=== PATIENT | female | born 1960 | race Caucasian/White ===

== ENCOUNTER 2022-06-08 11:35 | Observation (INO) ==
--- NOTE | 2022-05-10 15:35 | PAT Medication Instructions ---
Medication Instructions Date of Service May 10, 2022 Home Medications ibuprofen 200 mg tablet (Advil) 600 mg PO BID PRN magnesium gluconate 500 mg tablet 500 mg PO TID ASK your surgeon for instructions ibuprofen 200 mg tablet (Advil) 600 mg PO BID PRN DO NOT take the morning of surgery magnesium gluconate 500 mg tablet 500 mg PO TID Take evening before surgery magnesium gluconate 500 mg tablet 500 mg PO TID Other Notes If you have any questions please call us at [phone] or [phone] or [phone] or [phone]
--- NOTE | 2022-05-16 08:40 | Anesthesiology Consultation ---
Date of Service May 16, 2022 Assessment & Plan (1) Encounter for pre-operative examination: Chart Review Chart Review: Acceptable Risk for Surgery and Patient seen in Pre Admission Testing Teaching & Discussion Pre-Anesthesia Teaching/Discussion Notes: Instructed NPO after midnight before surgery, except medications with 15 cc of water. Medication instructions provided according to the PAT guidelines. History Surgery Operation Date: 06/08/22 11:30 Proposed Procedures p Left Total Shoulder Arthroplasty - Bean Garrido MD Height/Weight Height: 5 ft 4 in Weight: 73.5 kg Allergies Allergy/AdvReac Type Severity Reaction Status Date / Time No Known Allergies Allergy Verified 05/10/22 14:53 Medications Home Medications Medication Instructions Recorded Confirmed Last Taken ibuprofen 200 mg tablet (Advil) 600 mg PO BID PRN Pain 05/10/22 05/10/22 Unknown magnesium gluconate 500 mg tablet 500 mg PO TID 05/10/22 05/10/22 Unknown Past Medical History Medical History (Updated 05/16/22 @ 08:50 by Janice Patel PA-C) Elevated cholesterol History of COVID-19 04/2021 DX History of kidney stones Hypertension controlled, stable per pt Jaw clicking NO LOCKING Prediabetes Patient denies h/o stroke, seizures, heart attack, heart failure, blood clots or blood transfusions. Exercise / Class Metabolic Activity II 4-5 Yardwork/Stairs/Walk up hill (denies CP or SOB with 1 FOS) Past Family History Family History Other No family history of adverse response to anesthesia Past Surgical History Surgical History H/O cardiac radiofrequency ablation 2009/[facility]>TACHYCARDIA (RESOLVED) H/O shoulder surgery LEFT X 2 History of section X 4 History of colonoscopy History of lithotripsy History of partial hysterectomy S/P hip arthroscopy RT [place] teeth removed Past Anesthesia History No Hx of Anesthesia Complications and No Family Hx of Anesthesia Complications History of PONV No Hx of PONV and No Hx of Motion Sickness Social History Smoking Status: Never smoker Do You Dip or Chew Tobacco: No Hx Alcohol Use: Yes Alcohol type: wine and hard liquor alcohol intake frequency: a few times a week substance use type: does not use Review of Systems Patient denies chest pain, shortness of breath, dyspnea on exertion, snoring, witnessed apneas, reflux, fever, chills, cough, wheezing, or palpitations. Physical Exam Vital Signs Vitals BP 150/87 (Pt states BP is usually 130s/70-80s, is anxious today at appointment about surgery) P 76 SP02 98% on RA RESP 17 Physical Full cervical extension range of motion without pain TMD 3.5 finger breadths Mallampati Score 2 Dentition: intact, caps/crowns, implants; denies chipped or loose teeth Lungs: normal respiratory effort. Clear throughout to auscultation, no adventitious breath sounds Cardiac: regular rate and rhythm, no murmurs noted Carotid arteries: negative bruit bilat Lab Results Anesthesia Preop Results Results Anesthesia Widget: WBC 5.73 K/ul (4.8-10.8) 05/16/22 Hgb 15.2 g/dl (12.0-16.0) 05/16/22 Hct 43.4 % (34.1-44.9) 05/16/22 Plt 190 K/uL (130-400) 05/16/22 Na 139 mmol/L (136-145) 05/16/22 K 4.4 mmol/L (3.5-5.1) 05/16/22 Cl 105 mmol/L (98-107) 05/16/22 CO2 25 mmol/L (21-32) 05/16/22 BUN 19 mg/dl (6-23) 05/16/22 Creat 0.80 mg/dl (0.6-1.2) 05/16/22 Glucose Level 145 mg/dl (70-99(Fasting)) H 05/16/22 PT 10.0 Seconds (9.0-12.0) 05/16/22 PTT 24.6 Seconds (21.0-31.0) 05/16/22 INR 0.9 (0.9-1.1) 05/16/22 HA1c 5.7 % (4.5-5.6) H 05/16/22 Urine Color Yellow 05/16/22 Urine Appearance Clear (Clear) 05/16/22 Urine pH 7.0 (4.5-7.5) 05/16/22 Urine Specific [place] 1.016 (1.000-1.030) 05/16/22 Urine Protein Negative (Negative) 05/16/22 Urine Glucose (UA) Negative (Negative) 05/16/22 Urine Ketones Negative (Negative) 05/16/22 Urine Blood Negative (Negative) 05/16/22 Urine Nitrite Negative (Negative) 05/16/22 Urine Bilirubin Negative (Negative) 05/16/22 Urine Urobilinogen Negative (Negative) 05/16/22 Urine Leukocyte Esterase Negative (Negative) 05/16/22 Blood Type B Negative 05/16/22 Antibody Screen NEGATIVE 05/16/22 Testing Electrocardiogram Date: 05/16/22 NSR, rate 66 bpm Chest X-Ray Date: 05/16/22 No acute chest disease
--- NOTE | 2022-06-07 16:31 | History & Physical Report ---
Date of Service June 07, 2022 Assessment & Plan (1) Primary osteoarthritis, left shoulder: Plan: Treatment options discussed with patient. She has failed conservative measures would like to proceed with surgical intervention. Risks, benefits and alternatives to surgery including but not limited to infection, DVT, pain, stiffness, need for revision surgery, damage to blood vessels, damage to nerves, PE, , were discussed with the patient and they wish to proceed. Plan on left total shoulder arthroplasty scheduled on June 08 at [facility] with Dr. Garrido. We will plan on outpatient PT postop. All questions answered. She will follow-up postop. History of Present Illness Chief Complaint: Left shoulder pain Primary Care Provider: NO PCP 61-year-old female with past medical history significant for hypertension who presents with ongoing left shoulder pain. Pain is interfering with her daily a ctivities. She has failed conservative measures. She would like to proceed with surgical invention.Patient denies headaches, sweats, fevers, chills, double vision, blurred vision, cough, sore throat, dysphagia, chest pain, sob, wheezing, n/v/d/c, numbness, tingling, fatigue, urinary symptoms, mood disorders. ROS positive for Left shoulder pain and stiffness. Allergies Allergy/AdvReac Type Severity Reaction Status Date / Time No Known Allergies Allergy Verified 06/08/22 12:05 Home Medications Medication Instructions Recorded Confirmed Type ibuprofen 200 mg tablet (Advil) 600 mg PO BID PRN Pain 05/10/22 06/08/22 History magnesium gluconate 500 mg tablet 500 mg PO TID 05/10/22 06/08/22 History Past Med/Surg History Medical History Elevated cholesterol History of COVID-19 04/2021 DX History of kidney stones Hypertension controlled, stable per pt Jaw clicking NO LOCKING Prediabetes Surgical History H/O cardiac radiofrequency ablation 2009/[facility]>TACHYCARDIA (RESOLVED) H/O shoulder surgery LEFT X 2 History of section X 4 History of colonoscopy History of lithotripsy History of partial hysterectomy S/P hip arthroscopy RT [place] teeth removed Family History Other No family history of adverse response to anesthesia Social History Smoking Status: Never smoker Second Hand Exposure: Yes (IN THE PAST); Do You Dip or Chew Tobacco: No; Hx Alcohol Use: Yes Alcohol type: wine and hard liquor Preferred Language: Latvian Manifold Builder Required: No Beliefs That Will Affect Care: None Current Living Situation: Spouse Feels Safe at Home: Yes Safety Concerns: Feels Safe At This Time Assistive Devices: Glasses Review of Systems All systems reviewed & are unremarkable except as noted in HPI & below Physical Exam Constitutional: well developed and well nourished; no acute distress Eyes: PERRL, conjunctivae normal, anicteric sclerae ENMT: external ear and nose normal, oropharynx normal Neck: trachea midline, no thyromegaly Respiratory: normal respiratory effort, lungs clear to auscultation Cardiovascular: RRR, no murmur, no edema Musculoskeletal: Left shoulder: Active painful ROM. FF to 170, abduction to 180, ER to 75 degrees. Crepitation with ROM. Pain with strength testing. Skin: no rashes, warm and dry Neurologic: patellar DTR's 2+ bilat, sensation intact Psychiatric: A+Ox3, euthymic affect Results & Data ([facility]) Diagnostic Findings Left shoulder radiographs demonstrate significant arthritis left shoulder. The re is a large inferior osteophyte. Significant joint space narrowing glenohumeral joint.
[~2022-06-08 11:35] MED LIST: ACETAMINOPHEN 500 MG TAB PO SCH; BUPIVACAINE 0.5 % 5 MG/1 ML PF 10ML VIAL ONE; CeleBREX 200 MG CAP PO SCH; DEXAMETHASONE SOD INJ 4 MG/ML VIAL ONE; FAMOTIDINE 20 MG TAB PO SCH; GABAPENTIN 300 MG CAP PO SCH; LIDOCAINE 2% MPF LOCAL 5 ML VIAL INFIL ONE; LR 15ML/HR IV SCH; METOCLOPRAMIDE HCL 10 MG TABLET PO SCH; MIDAZOLAM HCL 1 MG/ML 2ML VIAL ONE; ONDANSETRON INJ 2 MG/ML 2 ML VIAL ONE; PROPOFOL IV EMULSION 10 MG/ML 20 ML VIAL IV ONE; TRANEXAMIC ACID 1,000 MG **IV Intra-op IV SCH; TRANEXAMIC ACID 1,000 MG **IV Pre-op IV SCH; ceFAZolin 1000MG 1,000 MG/7.5 ML SYR IV SCH; dexAMETHasone 4 MG TAB PO SCH
[2022-06-08] MEDS ORDERED: PROMETHAZINE HCL 6.25 MG in SODIUM CHLORIDE 0.9% 50 ML IV PRN (12:02)
[2022-06-08] MEDS ORDERED: ePHEDrine sulfate 50 MG/ML AMP IV PRN (12:02)
[2022-06-08] MEDS ORDERED: ATROPINE SULFATE 0.1 MG/ML 10ML SYR IV PRN (12:02)
[2022-06-08] MEDS ORDERED: ONDANSETRON INJ 2 MG/ML 2 ML VIAL IV PRN ×2 (12:02→17:49)
[2022-06-08] MEDS ORDERED: HYDROmorphone INJ 1 MG/ML SYRINGE IV PRN (12:02)
[2022-06-08] MEDS ORDERED: fentaNYL citrate 100 MCG/2 ML VIAL IV PRN (12:02)
[2022-06-08] MEDS ORDERED: EpINEphrine HCL INJ 1 MG/ML 1ML SYRINGE ONE (12:48)
[2022-06-08] MEDS ORDERED: fentaNYL citrate 100 MCG/2 ML VIAL ONE ×2 (13:29→16:03)
--- NOTE | 2022-06-08 13:46 | History & Physical Bridge Note ---
Date of Service June 08, 2022 History & Physical Bridge Note I have examined the patient, reviewed the History & Physical and in the interval since the performance of the History & Physical I have noted the following changes of clinical significance: no changes noted
[2022-06-08] MEDS ORDERED: SUCCINYLCHOLINE 100MG/5ML SYR IV ONE (14:27)
[2022-06-08] MEDS ORDERED: ROCURONIUM BROMIDE 10 MG/ML 5 ML VIAL IV ONE ×2 (14:27→15:40)
[2022-06-08] MEDS ORDERED: GLYCOPYRROLATE 0.2 MG/ML VIAL ONE (16:22)
[2022-06-08] MEDS ORDERED: NEOSTIGMINE METHYLSULFATE 1 MG/ML 10ML VIAL ONE (16:22)
--- NOTE | 2022-06-08 16:41 | Operative Report ---
Post Operative Report Pre & Post Diagnosis Operation Date: 06/08/22 13:10 Pre-Op Diagnosis: Osteoarthritis of the left glenohumeral joint. Post-Op Diagnosis: Osteoarthritis of the left glenohumeral joint., Biceps tenosynovitis. I identified the patient and participated in the time-out.: Yes Procedure Operation Date: 06/08/22 13:10 Actual Procedures p Left Total Shoulder Arthroplasty(Left), biceps tenodesis with tenosynovectomy biceps tendon sheath - Bean Garrido MD Surgeon Bean Garrido MD Engineering Production Liaison Gerardo TIERNEY Estimated Blood Loss 100 Findings Consistent with Post-Op Diagnosis Specimens Humeral head cut Drains 2 Hemovac Anesthesia Type General Regional Complications none Disposition Disposition: Recovery Room Indications 61-year-old female with chronic osteoarthritis her left shoulder failed conservative management. Radiographs demonstrate osteoarthritis of left glenohumeral joint with large inferior humeral osteophytes and glenohumeral joint space narrowing on axillary view close to [id number]. Description of Procedure Patient was taken to the operating room anesthetized under regional block and general anesthetic. Patient was placed in a 40 degree beachchair position with a foam headrest protective eyewear all extremities padded teds and SCDs were placed. A towel roll was placed on the medial border of the scapula of the left upper extremity. The arm was examined and range of motion demonstrated 150 degrees forward flexion, 60 degrees external rotation with the arm to side and 70 degrees of internal rotation and 80 degrees of abduction. An anterior deltopectoral approach was performed. Longitudinal incision was made in deltopectoral interval. Skin incised sharply and subcutaneous flaps elevated. The deltopectoral interval was identified. The cephalic vein demonstrated normal-appearing cephalic vein. The cephalic vein was retracted laterally with the deltoid. The upper centimeter of the pectoralis was released for inferior exposure. Biceps tendon demonstrated large fluid collection overlying biceps tendon with chronic tenosynovitis. There were spurs in the bicipital groove. A tenosynovectomy was performed removing all of the inflamed tissue around the biceps tendon. The biceps was tenodesed to the pectoralis tendon using #2 FiberWire [id number] sutures. Proximal biceps was resected. Rotator cuff findings demonstrated intact rotator cuff. The circumflex vessels were tied off with silk ties and divided laterally. The subscapularis muscle fibers were split at the level of circumflex vessels and released off the inferior capsule with a Kitner elevator and then a blunt Hohmann retractor was placed protect the axillary nerve. The rotator interval was released down to the level of the glenoid. The subscapularis tendon was taken down with a transtendinous incision leaving a cuff of tissue for repair on the lesser tuberosity. The humeral head findings demonstrated advanced arthritic changes on humeral head with areas of grade 3 and grade 4 osteoarthritis no eburnated bone but significant articular thinning. The inferior osteophytes were resected using an artist chisel and rongeur. The inferior capsule was released off the bone subperiosteally using a Maguire elevator. A #1 Vicryl traction suture was placed into the free edge of the subscapularis tendon. A Fukuda retractor was placed into the joint. Capsule was released with Siu scissors down to the glenoid and off of the anterior glenoid to the rotator interval which was released to meet the capsular release creating a 360 degree release of subscapularis tendon. An anterior Bankart retractor was placed. The glenoid and labral findings demonstrated typical degenerative changes of the labrum and the glenoid had more significant osteoarthritic changes in the humeral head with areas of exposed bone and areas where there were complete delamination of the articular surface of the glenoid. There was concentric type A wear pattern. An anterior-inferior and posterior inferior capsule release was performed electrocautery on bone and a Maguire elevator. The axillary nerve was protected inferiorly with the blunt Hohmann. Attention was taken back to the humeral head. Humeral head was exposed with extension and external rotation. The oscillating saw was used to make an anatomic neck cut removing the articular surface. All the circumferential remaining osteophytes were trimmed with a rongeur. The humerus was sized for a 2 nucleus and a 50 x 19 humeral head. The bone was assessed with a thumb press test and there was solid cancellous bone. The guide for the nucleus was placed centrally and then the guidepin was placed. The surface reamer was used followed by the central drill for the nucleus. The trial nucleus was inserted and the cut protector was placed. The humerus was retracted posterior to the glenoid . A Tornier retractor ,Hohmann retractors as well as an anterior Bankart retractor were placed. The glenoid was fully exposed. The Tornier Cortiloc glenoid was used. The small 35 size was chosen. The central drill hole was made followed by the reamer for the glenoid followed by widening the central hole for the central post. The guide for the peripheral drill holes was placed and the drill holes were made. The trial reduction performed with stable fixation. The trial removed and the glenoid copiously irrigated with pulsed saline solution. The drill holes were packed with epinephrine-soaked tampons. The [place] G cement was vacuum mixed. The small 35 Cortiloc glenoid component was then cemented in position after drying the glenoid after removal of the tampons. Fixation was excellent. All excess cement was cleared. When the cement cured we moved onto removing the cut protector doing a trial reduction with a 50 x 19 millimeter humeral head trial. Stability was assessed and was stable. Soft tissue tension on the subscapularis tendon was satisfactory. The trial components of the humeral head were removed and the 3 drill holes were made in the harder bone in the biceps groove area and transosseous #5 FiberWire sutures were placed. Then the humeral cut surface was reexposed with retractors and after irrigation the size 2 nucleus was impacted leaving it slightly proud until the 50 x 19 mm simplicity humeral head was placed into the nucleus and then both were impacted into the humerus with a tight press-fit. The humerus was reduced to the glenoid. The stability was verified. The subscapularis tendon was repaired in 2 [id number] #2 FiberWire sutures. Lateral row fixation was performed with interrupted [id number] #2 FiberWire sutures and rotator interval was closed with #2 FiberWire sutures. Range of motion demonstrated 150 degrees forward flexion 100 degrees abduction 45 degrees external rotation and 70 degrees internal rotation without tension on repair. The pectoralis was repaired with [id number] #2 FiberWire sutures placing sutures back through the biceps tendon to reinforce the tenodesis. 2 Hemovac drains were placed. The deltopectoral interval was repaired with figure-of- eight #1 Vicryl sutures. The subcutaneous tissue was repaired with 2-0 Vicryl sutures and the skin was closed with angela. Sterile dressings were applied and a sling immobilizer. The patient tolerated the procedure well. Gerardo TIERNEY acted as treasury assistant throughout the procedure. He functioned as treasury assistant assisting in all aspects of the procedure including patient positioning prepping draping, arm positioning, soft tissue retraction,, instrument management, subcutaneous and skin closure and postop care the patient as well. I attest to the content of the Intraoperative Record and any orders documented therein. Any exceptions are noted below.
--- NOTE | 2022-06-08 17:18 | XRay Report ---
XR shoulder LT min 2V routine CLINICAL HISTORY: Post shoulder surgery TECHNIQUE: 3 views of the left shoulder were obtained. Comparison: None available at the time of this dictation. FINDINGS: Patient is status post shoulder arthroplasty with expected postsurgical changes including soft tissue swelling and subcutaneous emphysema. No periarticular lucency or hardware fracture is seen. IMPRESSION: Expected postoperative appearance status post placement of shoulder arthroplasty. ACT 112: Negative or not required by law. Electronically signed by: Burton Bell M.D. 06/08/2022 5:16 PM
--- NOTE | 2022-06-08 17:26 | Anesthesiology Progress Note ---
Date of Service June 08, 2022 Anesthesia Post Procedure Vital Signs Vital Signs: Temp Pulse Pulse Resp BP Pulse Ox O2 Del Method 06/08/22 17:25 97.9 F 72 19 145/83 H 95 Room Air 06/08/22 17:15 72 20 135/79 95 Room Air 06/08/22 17:05 75 16 143/89 H 98 Oxymask 06/08/22 16:55 74 19 128/76 98 Oxymask 06/08/22 16:45 97.2 F L 90 14 153/92 H 97 Oxymask 06/08/22 12:10 98.4 F 65 20 169/86 H 97 Room Air O2 Flow Rate 06/08/22 17:25 06/08/22 17:15 06/08/22 17:05 4 06/08/22 16:55 9 06/08/22 16:45 9 06/08/22 12:10 Pain Intensity Left Shoulder: Pain Intensity: 4 Transfer of Care Handoff Completed per policy Notes Mental Status: alert / awake / arousable and participated in evaluation Patient Amnestic to Procedure: Yes Nausea / Vomiting: adequately controlled Pain: adequately controlled Airway Patency, RR, SpO2: stable & adequate BP & HR: stable & adequate Hydration State: stable & adequate Anesthetic Complications: no major complications apparent and Pt Satisfied with anesthetic care
[2022-06-08] MEDS ORDERED: NALOXONE HCL 0.4 MG/1 ML VIAL/CARP IV PRN (17:49)
[2022-06-08] MEDS ORDERED: bisacodyL 10 MG SUPP PR PRN (17:49)
[2022-06-08] MEDS ORDERED: MAGNESIUM HYDROXIDE SUSP 30 ML UDC PO PRN (17:49)
--- NOTE | 2022-06-08 18:32 | Hospitalist Consultation ---
Date of Consultation June 08, 2022 Assessment & Plan (1) Primary osteoarthritis, left shoulder: - Pain management, bowel regimen and DVT ppx per the primary team - PT/OT consults, pt is planning on outpatient therapy - Follow am CBC to monitor for acute blood loss - Encourage OOB (2) Hypertension: - Hx of such, previously was on atenolol 12.5 mg daily but stopped taking this nearly 6 months ago as did not see a PCP through covid pandemic. She then tested positive for covid this summer. She wants to continue following with Valerie Morris DO as her primary pcp - Will monitor BP and determine if any needs for reintroduction of antihypertensive-outpatient SBP's ranging 135-170s per patient report - Previously used lasix 40 mg prn for lower extremity edema, pt states used only whenever she was flying on a plane, but rarely experiences edema at this time (3) Elevated cholesterol: - Lipid panel from 07/30/2020 show cholesterol of 242, triglycerides 211, HDL 55, LDL 145 - will recheck with am labs -Diet and exercise to be encouraged (4) Prediabetes: - Last A1c was from 05/16/22 and was 5.7, improved compared to previous 6.0 from 07/30/2020 and outpatient epic review - Continue to encourage diet and exercise (5) Hypothyroidism: - Hx of such, pt has been noncompliant with medication and previously was on levothyroxine 125 mcg daily- she has not taken for at least 6 mo to a year as per HPI. - Recheck TSH with Free T4 -- Add levothyroxine if needed, will need repeat TSH in 6 weeks and follow up with PCP DVT PPx: -Ambulatory, teds CODE: Full code Dispo: From home, likely to remain in the hospital x 1-2 days Thank you for involving us in the care of Mrs. Drummond. Please do not hesitate to call with questions or concerns. At this time medicine service will follow along. Supervising Physician Co-Signing Physician Notes Care coordinated with Connie Dick PA-C . Agree with above note. Patient seen and examined. Please refer to her notes for full details. Vital signs reviewed. Physical exam: General exam: Alert and oriented. Not in acute distress. CVS: S1 and S2 heard, regular rate and rhythm, no murmurs. RS: Clear to auscultation, no wheezing or crackles. ABD: Soft, bowel sounds present, nontender, no distention. LOCAL DELIVERY TRUCK DRIVER: Nonfocal. EXT: Left shoulder dressing intact. Labs: Reviewed. Assessment and plan: 61F s/p left shoulder arthoplasty Left shoulder arthoplasty: Management as per ortho. HTN Currently not taking atenolol. Will monitor. Other diagnosis and plan of care as per Connie Dick PA-C . Celestino westfall MD. History of Present Illness Reason for Consultation: Medical management Requesting Physician: Dr. Bermudez Attending Physician: Bean Garrido MD History of Present Illness This is a 61-year-old female with PMHx of prediabetes, WPW syndrome status post cardiac ablation in 2015, hypothyroidism, HTN, anxiety, and multiple surgical histories including shoulder surgery, hip surgery, lumbar disc disease, and total abdominal hysterectomy who underwent elective left total shoulder arthroplasty, by Dr. Bermudez today, 06/08/2022. Patient is doing well today, she reports her left fingers are still somewhat numb since coming up from surgery. Her pain is well controlled. She was up and ambulated to the bathroom to urinate, reports her urine was somewhat dark because of being n.p.o. for surgery . Pt admits to some postoperative nausea, slowly improving, and just now is starting to drink water. She admits that she has not seen her PCP in nearly the past 2 years due to COVID pandemic, and states that the office would not see her in person. She received preop clearance from [facility]'s preanesthesia testing for shoulder surgery today. She has not been on any of her medications which are listed in the [facility] outpatient chart including levothyroxine 125 mcg, atenolol 12.5 mg daily, or Lasix 40 mg twice a week as needed for swelling in lower legs. Her frustration with not being able to see her PCP is obvious at bedside, but she is willing to have thyroid function checked here while in the hospital and is agreeable to restarting levothyroxine if needed. She denies the need for Lasix as she does not experience much swelling in her legs at all at this point, notes that she previously took it whenever she was flying in a plane. In regards to atenolol, she was on 12.5 mg but stopped taking this because of feeling tired. She denies any chest pain, palpitations, flutter and recalls that it was started because of elevated blood pressure; to her knowledge BPs run around 135-170 systolic in the outpatient setting. Allergies Allergy/AdvReac Type Severity Reaction Status Date / Time No Known Allergies Allergy Verified 06/08/22 12:05 Home Medications Medication Instructions Recorded Confirmed Type magnesium gluconate 500 mg tablet 500 mg PO TID 05/10/22 06/08/22 History acetaminophen 500 mg tablet 1,000 mg PO Q8 14 days #84 tabs 06/09/22 Rx (Tylenol Extra Strength) aspirin 81 mg tablet,delayed 81 mg PO QAM 30 days #30 tabs 06/09/22 Rx release oxycodone 5 mg tablet 5 mg PO Q4H PRN pain #18 tabs 06/09/22 Rx Patient History Medical History (Updated 06/08/22 @ 19:28 by Connie Dick PA-C) Elevated cholesterol History of COVID-19 04/2021 DX History of kidney stones Hypertension controlled, stable per pt Jaw clicking NO LOCKING Prediabetes Surgical History H/O cardiac radiofrequency ablation 2009/[facility]>TACHYCARDIA (RESOLVED) H/O shoulder surgery LEFT X 2 History of section X 4 History of colonoscopy History of lithotripsy History of partial hysterectomy S/P hip arthroscopy RT [place] teeth removed Family History Other No family history of adverse response to anesthesia Social History Smoking Status: Never smoker Second Hand Exposure: Yes (IN THE PAST); Do You Dip or Chew Tobacco: No; Hx Alcohol Use: Yes Alcohol type: wine and hard liquor Preferred Language: Sudanese [employer] Required: No Beliefs That Will Affect Care: None Current Living Situation: Spouse Feels Safe at Home: Yes Safety Concerns: Feels Safe At This Time Assistive Devices: Glasses Review of Systems Review of Systems: Constitutional: No fever, sweats or chills Eyes: No diplopia, no worsening or blurred vision ENT: normal hearing, no trouble swallowing Respiratory: No cough, sputum, dyspnea at rest or on exertion Cardiovascular: No chest pain, tightness or palpitations Abdomen: No pain, nausea, vomiting, diarrhea or constipation Musculoskeletal: No joint pain, calf pain, swelling Neurologic: + Still numb in the left hand and fingers, otherwise no weakness, numbness/tingling, or balance problems Psychiatric: No anxiety or depression Skin: No rash or itch Physical Exam Physical Exam: General: awake, alert, no apparent distress Head: Normocephalic, atraumatic ENT: PERRL, EOMI, no pharyngeal exudate, mucous membranes moist Chest: Clear to auscultation, on room air, no adventitious breath sounds Cardiac: Regular rate and rhythm, no murmur, no JVD, normal peripheral pulses, good capillary refill Abdominal: NABS x 4 quadrants, soft, nondistended, nontender to palpation, no rebound or guarding Extremities: Left shoulder dressing C/C/I, arm is in a sling, MICHAELA drain in place, otherwise normal inspection, no peripheral edema or erythema, calfs nontender to palpation Psych: Normal mood and affect Neuro: AAO x 3, strength intact bilaterally and rated 5/5, no motor deficits, speech is clear, no peripheral sensory deficits Results & Data Results & Data ([facility]) Vital Signs (Past 12 Hours) Vital Signs Temp Pulse Pulse Resp BP Pulse Ox O2 Del Method 06/08/22 18:18 36.6 C 65 16 131/75 95 Room Air 06/08/22 17:38 36.7 C 16 120/70 97 Room Air 06/08/22 17:25 36.6 C 72 19 145/83 H 95 Room Air 06/08/22 17:15 72 20 135/79 95 Room Air 06/08/22 17:05 75 16 143/89 H 98 Oxymask 06/08/22 16:55 74 19 128/76 98 Oxymask 06/08/22 16:45 36.2 C L 90 14 153/92 H 97 Oxymask 06/08/22 12:10 36.9 C 65 20 169/86 H 97 Room Air O2 Flow Rate 06/08/22 18:18 06/08/22 17:38 06/08/22 17:25 06/08/22 17:15 06/08/22 17:05 4 06/08/22 16:55 9 06/08/22 16:45 9 06/08/22 12:10 Laboratory Results 06/08/22 06/08/22 12:26 12:16 POC Glucose 92 SARS-CoV-2, RNA, NAAT NEGATIVE
[2022-06-08] MEDS: SODIUM CHLORIDE 0.9% 1000ML 1,000 ML IV SCH (18:38)
[2022-06-08] MEDS: HYDROmorphone INJ 0.5 MG/0.5 ML SYR IV PRN ×2 (20:04→23:55)
[2022-06-08] MEDS: MAGNESIUM OXIDE 400 MG TAB PO SCH (20:05)
[2022-06-08] MEDS: DOCUSATE SODIUM 100 MG CAP PO SCH (20:13)
[2022-06-08] MEDS ORDERED: SENNA 8.6 MG TAB PO SCH (21:00)
[2022-06-08] MEDS: ceFAZolin 1000MG 1,000 MG/7.5 ML SYR IV SCH (21:57)
[2022-06-08] MEDS: ACETAMINOPHEN 500 MG TAB PO SCH (21:59)
[2022-06-09] MEDS: oxyCODONE HCL IR 5 MG TAB (IMMEDIATE RELEASE) PO PRN ×3 (02:44→15:49)
[2022-06-09] MEDS: SODIUM CHLORIDE 0.9% 1000ML 1,000 ML IV SCH ×2 (03:49→04:15)
[2022-06-09] MEDS: HYDROmorphone INJ 0.5 MG/0.5 ML SYR IV PRN ×2 (04:11→11:24)
[2022-06-09 06:11] LABS: Basophils # (auto) 0.02 K/uL (0-0.2); Basophils % (auto) 0.2 %; Eosinophils # (auto) 0.01 K/uL (0-0.50); Eosinophils % (auto) 0.1 %; Hematocrit (blood only) 36.6 % (34.1-44.9); Hemoglobin 12.8 g/dl (12.0-16.0); Immature Granulocytes # (auto) 0.06 K/uL (0.00-0.02); Immature Granulocytes % (auto) 0.5 %; Lymphocytes # (auto) 0.93 K/uL (1.2-3.4); Lymphocytes % (auto) 7.9 %; Mean Corpuscular Volume 97.1 fL (80.0-100.0); Mean Platelet Volume 11.2 fL (9.4-12.3); Monocytes # (auto) 0.71 K/uL (0.24-0.82); Monocytes % (auto) 6.1 %; Neutrophils % (auto) 85.2 %; Platelet Count 173 K/uL (130-400); RDW Coefficient of Variation 11.7 % (11.5-14.5); RDW Standard Deviation 41.4 fL (36.4-46.3); Red Blood Count 3.77 M/uL (3.93-5.22); White Blood Count 11.73 K/ul (4.8-10.8)
[2022-06-09] MEDS: ACETAMINOPHEN 500 MG TAB PO SCH ×2 (06:41→14:40)
[2022-06-09 06:48] LABS: BUN Creatinine Ratio 16.7 (10-20); Calcium 8.4 mg/dl (8.5-10.1); Chol HDL Ratio 4.1 (0-5); Creatinine Clr Calc Pharmacy 88.4 ml/min; Est GFR (African American) 110.5 ml/min; Est GFR (Non-African American) 95.3 ml/min
[2022-06-09] MEDS: ceFAZolin 1000MG 1,000 MG/7.5 ML SYR IV SCH (07:12)
[2022-06-09] MEDS: MAGNESIUM OXIDE 400 MG TAB PO SCH ×2 (08:13→14:39)
[2022-06-09 08:36] LABS: Estimated Average Glucose 114 mg/dl; Hemoglobin A1C 5.6 % (4.5-5.6)
[2022-06-09] MEDS: DOCUSATE SODIUM 100 MG CAP PO SCH (08:39)
[2022-06-09] MEDS ORDERED: ASPIRIN 81 MG ECTAB PO SCH (09:00)
[2022-06-09] MEDS ORDERED: MULTIVITAMIN TAB PO SCH (09:00)
[2022-06-09] MEDS ORDERED: KETOROLAC 30 MG/ML VIAL IV ONE (12:55)
--- NOTE | 2022-06-09 13:09 | Orthopedic Progress Note ---
Date of Service June 09, 2022 Assessment & Plan (1) Primary osteoarthritis, left shoulder: Plan: Postop day 1 status post left total shoulder arthroplasty PT/OT protocols. Nonweightbearing left upper extremity DVT prophylaxis-aspirin p.o. daily, SCDs. Pain management as written. I have also ordered a one-time dose of Toradol 30 mg IV to help with her pain control. DC planning-patient is planning for outpatient PT upon discharge. Admission and Anticipated Discharge Date Admission Date: June 08, 2022 Subjective Postop day 1 Patient sitting in her chair at the bedside. She is having concerns with her pain control. She is trying to time it accordingly and finds it somewhat difficult here at the hospital. She understands that she will be able to control her pain control better at home. She received 1 dose of hydromorphone at 1130 this morning. She states that has controlled her pain. She had 2 tablets of oxycodone at 830 and was questioning whether she should have had another dose of that at 1230. We discussed her pain medications and timing of those medications. Patient understands and is sure that she is able to control her pain at home. No other complaints at this time. She denies any shortness of breath, chest pain, lightheadedness. Physical Exam Physical Exam: Dressings are clean, dry, and intact. Sling is in place. Fingers have good mobility but she continues to have residual numbness in the first through third fingers which is basically tingling sensation per the patient. Results & Data ([facility]) Vital Signs (Past 12 Hours) Vital Signs Temp Pulse Resp BP Pulse Ox O2 Del Method 06/09/22 11:20 36.6 C 57 L 16 144/81 H 97 Room Air 06/09/22 07:04 36.6 C 67 16 113/61 94 Room Air 06/09/22 02:38 36.4 C L 67 16 131/75 93 Room Air Laboratory Results Laboratory Results WBC 11.73 K/ul (4.8-10.8) H 06/09/22 05:41 RBC 3.77 M/uL (3.93-5.22) L 06/09/22 05:41 Hgb 12.8 g/dl (12.0-16.0) 06/09/22 05:41 Hct 36.6 % (34.1-44.9) 06/09/22 05:41 MCV 97.1 fL (80.0-100.0) 06/09/22 05:41 MCH 34.0 pg (25.0-34.0) 06/09/22 05:41 MCHC 35.0 g/dL (32.0-36.0) 06/09/22 05:41 RDW Std Deviation 41.4 fL (36.4-46.3) 06/09/22 05:41 RDW Coeff of Osbaldo 11.7 % (11.5-14.5) 06/09/22 05:41 Plt Count 173 K/uL (130-400) 06/09/22 05:41 MPV 11.2 fL (9.4-12.3) 06/09/22 05:41 Immature Gran % (Auto) 0.5 % 06/09/22 05:41 Neut % (Auto) 85.2 % 06/09/22 05:41 Lymph % (Auto) 7.9 % 06/09/22 05:41 [place] % (Auto) 6.1 % 06/09/22 05:41 Eos % (Auto) 0.1 % 06/09/22 05:41 Baso % (Auto) 0.2 % 06/09/22 05:41 Neut # (Auto) 10.00 K/uL (1.4-6.5) H 06/09/22 05:41 Lymph # (Auto) 0.93 K/uL (1.2-3.4) L 06/09/22 05:41 [place] # (Auto) 0.71 K/uL (0.24-0.82) 06/09/22 05:41 Eos # (Auto) 0.01 K/uL (0-0.50) 06/09/22 05:41 Baso # (Auto) 0.02 K/uL (0-0.2) 06/09/22 05:41 Immature Gran # (Auto) 0.06 K/uL (0.00-0.02) H 06/09/22 05:41 Sodium 137 mmol/L (136-145) 06/09/22 05:41 Potassium 4.0 mmol/L (3.5-5.1) 06/09/22 05:41 Chloride 109 mmol/L (98-107) H 06/09/22 05:41 Carbon Dioxide 22 mmol/L (21-32) 06/09/22 05:41 Anion Gap 6 (3-11) 06/09/22 05:41 BUN 11 mg/dl (6-23) 06/09/22 05:41 Creatinine 0.66 mg/dl (0.6-1.2) 06/09/22 05:41 Est Cr Clr Drug Dosing 88.4 ml/min 06/09/22 05:41 Est GFR ( Amer) 110.5 ml/min 06/09/22 05:41 Est GFR (Non-Af Amer) 95.3 ml/min 06/09/22 05:41 BUN/Creatinine Ratio 16.7 (10-20) 06/09/22 05:41 Glucose 133 mg/dl (70-99(Fasting)) H 06/09/22 05:41 POC Glucose 92 mg/dl (70-99) 06/08/22 12:16 Estimat Average Glucose 114 mg/dl 06/09/22 05:41 Hemoglobin A1c 5.6 % (4.5-5.6) 06/09/22 05:41 Calcium 8.4 mg/dl (8.5-10.1) L 06/09/22 05:41 Triglycerides 111 mg/dl (0-150) 06/09/22 05:41 Cholesterol 223 mg/dl (0-200) H 06/09/22 05:41 LDL Cholesterol, Calc 147 mg/dl 06/09/22 05:41 VLDL Cholesterol, Calc 22 mg/dl (0-30) 06/09/22 05:41 HDL Cholesterol 54 mg/dl 06/09/22 05:41 Cholesterol/HDL Ratio 4.1 (0-5) 06/09/22 05:41 TSH 1.304 uIu/ml (0.300-4.500) 06/09/22 05:41 SARS-CoV-2, RNA, NAAT NEGATIVE (NEGATIVE) 06/08/22 12:26 Impressions Shoulder X-Ray 06/08/22 16:52 XR shoulder LT min 2V routine CLINICAL HISTORY: Post shoulder surgery TECHNIQUE: 3 views of the left shoulder were obtained. Comparison: None available at the time of this dictation. FINDINGS: Patient is status post shoulder arthroplasty with expected postsurgical changes including soft tissue swelling and subcutaneous emphysema. No periarticular lucency or hardware fracture is seen. IMPRESSION: Expected postoperative appearance status post placement of shoulder arthroplasty. ACT 112: Negative or not required by law. Electronically signed by: Burton Bell M.D. 06/08/2022 5:16 PM
--- NOTE | 2022-06-09 14:52 | Hospitalist Progress Note ---
Date of Service June 09, 2022 Assessment & Plan (1) Primary osteoarthritis, left shoulder: Plan: - Pain management, bowel regimen and DVT ppx per the primary team - PT/OT consults, pt is planning on outpatient therapy (2) Hypertension: Plan: - Hx of such, previously was on atenolol 12.5 mg daily but stopped taking this nearly 6 months ago as did not see a PCP through covid pandemic. She then tested positive for covid this summer. She wants to continue following with Valerie Morris DO as her primary pcp -Blood pressure during the hospitalization well controlled. Discussed with patient regarding home blood pressure monitoring and following up with PCP with the findings. (3) Elevated cholesterol: Plan: Total cholesterol 223 with LDL of 147. -Diet and exercise to be encouraged (4) Prediabetes: Plan: A1c improved to 5.6. Patient is compliant with diet and exercise. Continue same. (5) Hypothyroidism: Plan: TSH is within normal limits. DVT PPx: -Ambulatory, teds CODE: Full code Admission and Anticipated Discharge Date Admission Date: June 08, 2022 Subjective Patient is sitting up on the chair at the side of the bed. She is comfortable; not in distress. Pain is well controlled on current regimen. She is looking forward to get taking discharged today. Review of Systems Review of Systems: All systems reviewed & are unremarkable except as noted in Subjective Physical Exam Physical Exam: Constitutional: WD/WN, vitals as above, NAD, sitting up in bed, pleasant, conversing easily Respiratory: normal respiratory effort, lungs clear to auscultation, no wheeze, rales, rhonchi. Normal insp/exp effort, no accessory muscle use Cardiovascular: RRR, no murmur, no edema Vessels: no JVD or carotid bruit Chest: normal inspection of chest Abdomen: normal bowel sounds, soft, nontender, no hepatosplenomegaly Musculoskeletal: Left shoulder dressing intact; arm in arm sling Skin: no rashes, warm and dry normal turgor Neurologic: PERRL, EOMI, accommodation nl, no face palsy, no dysarthria CN's II- XI intact bilaterally and moves all extremities Psychiatric: A+Ox3, euthymic affect Lymphatic: no cervical or axillary lymphadenopathy : deferred Results & Data Results & Data ([facility]) Vital Signs (Past 12 Hours) Vital Signs Temp Pulse Resp BP Pulse Ox O2 Del Method 10/14/22 11:20 36.6 C 57 L 16 144/81 H 97 Room Air 06/09/22 07:04 36.6 C 67 16 113/61 94 Room Air Laboratory Results Laboratory Results WBC 11.73 K/ul (4.8-10.8) H 06/09/22 05:41 RBC 3.77 M/uL (3.93-5.22) L 06/09/22 05:41 Hgb 12.8 g/dl (12.0-16.0) 06/09/22 05:41 Hct 36.6 % (34.1-44.9) 06/09/22 05:41 MCV 97.1 fL (80.0-100.0) 06/09/22 05:41 MCH 34.0 pg (25.0-34.0) 06/09/22 05:41 MCHC 35.0 g/dL (32.0-36.0) 06/09/22 05:41 RDW Std Deviation 41.4 fL (36.4-46.3) 06/09/22 05:41 RDW Coeff of Osbaldo 11.7 % (11.5-14.5) 06/09/22 05:41 Plt Count 173 K/uL (130-400) 06/09/22 05:41 MPV 11.2 fL (9.4-12.3) 06/09/22 05:41 Immature Gran % (Auto) 0.5 % 06/09/22 05:41 Neut % (Auto) 85.2 % 06/09/22 05:41 Lymph % (Auto) 7.9 % 06/09/22 05:41 [place] % (Auto) 6.1 % 06/09/22 05:41 Eos % (Auto) 0.1 % 06/09/22 05:41 Baso % (Auto) 0.2 % 06/09/22 05:41 Neut # (Auto) 10.00 K/uL (1.4-6.5) H 06/09/22 05:41 Lymph # (Auto) 0.93 K/uL (1.2-3.4) L 06/09/22 05:41 [place] # (Auto) 0.71 K/uL (0.24-0.82) 06/09/22 05:41 Eos # (Auto) 0.01 K/uL (0-0.50) 06/09/22 05:41 Baso # (Auto) 0.02 K/uL (0-0.2) 06/09/22 05:41 Immature Gran # (Auto) 0.06 K/uL (0.00-0.02) H 06/09/22 05:41 Sodium 137 mmol/L (136-145) 06/09/22 05:41 Potassium 4.0 mmol/L (3.5-5.1) 06/09/22 05:41 Chloride 109 mmol/L (98-107) H 06/09/22 05:41 Carbon Dioxide 22 mmol/L (21-32) 06/09/22 05:41 Anion Gap 6 (3-11) 06/09/22 05:41 BUN 11 mg/dl (6-23) 06/09/22 05:41 Creatinine 0.66 mg/dl (0.6-1.2) 06/09/22 05:41 Est Cr Clr Drug Dosing 88.4 ml/min 06/09/22 05:41 Est GFR ( Amer) 110.5 ml/min 06/09/22 05:41 Est GFR (Non-Af Amer) 95.3 ml/min 06/09/22 05:41 BUN/Creatinine Ratio 16.7 (10-20) 06/09/22 05:41 Glucose 133 mg/dl (70-99(Fasting)) H 06/09/22 05:41 POC Glucose 92 mg/dl (70-99) 06/08/22 12:16 Estimat Average Glucose 114 mg/dl 06/09/22 05:41 Hemoglobin A1c 5.6 % (4.5-5.6) 06/09/22 05:41 Calcium 8.4 mg/dl (8.5-10.1) L 06/09/22 05:41 Triglycerides 111 mg/dl (0-150) 06/09/22 05:41 Cholesterol 223 mg/dl (0-200) H 06/09/22 05:41 LDL Cholesterol, Calc 147 mg/dl 06/09/22 05:41 VLDL Cholesterol, Calc 22 mg/dl (0-30) 06/09/22 05:41 HDL Cholesterol 54 mg/dl 06/09/22 05:41 Cholesterol/HDL Ratio 4.1 (0-5) 06/09/22 05:41 TSH 1.304 uIu/ml (0.300-4.500) 06/09/22 05:41 SARS-CoV-2, RNA, NAAT NEGATIVE (NEGATIVE) 06/08/22 12:26 Impressions Shoulder X-Ray 06/08/22 16:52 XR shoulder LT min 2V routine CLINICAL HISTORY: Post shoulder surgery TECHNIQUE: 3 views of the left shoulder were obtained. Comparison: None available at the time of this dictation. FINDINGS: Patient is status post shoulder arthroplasty with expected postsurgical changes including soft tissue swelling and subcutaneous emphysema. No periarticular lucency or hardware fracture is seen. IMPRESSION: Expected postoperative appearance status post placement of shoulder arthroplasty. ACT 112: Negative or not required by law. Electronically signed by: Burton Bell M.D. 06/08/2022 5:16 PM
--- NOTE | 2022-06-14 14:59 | Discharge Summary ---
Date of Service June 14, 2022 Admission HPI Per Admitting Provider 61-year-old female with past medical history significant for hypertension who presents with ongoing left shoulder pain. Pain is interfering with her daily activities. She has failed conservative measures. She would like to proceed with surgical invention.Patient denies headaches, sweats, fevers, chills, double vision, blurred vision, cough, sore throat, dysphagia, chest pain, sob, wheezing, n/v/d/c, numbness, tingling, fatigue, urinary symptoms, mood disorders. ROS positive for Left shoulder pain and stiffness. Admission Exam Per Admitting Provider Physical Exam Constitutional: well developed and well nourished; no acute distress Eyes: PERRL, conjunctivae normal, anicteric sclerae ENMT: external ear and nose normal, oropharynx normal Neck: trachea midline, no thyromegaly Respiratory: normal respiratory effort, lungs clear to auscultation Cardiovascular: RRR, no murmur, no edema Musculoskeletal: Left shoulder: Active painful ROM. FF to 170, abduction to 180, ER to 75 degrees. Crepitation with ROM. Pain with strength testing. Skin: no rashes, warm and dry Neurologic: patellar DTR's 2+ bilat, sensation intact Psychiatric: A+Ox3, euthymic affect Principal Diagnosis Left Shoulder Osteoarthritis Discharge Data Allergies Allergy/AdvReac Type Severity Reaction Status Date / Time No Known Allergies Allergy Verified 06/08/22 12:05 Consultations 06/06/22 13:17 Consult Hospitalist Routine Procedures Performed Operation Date: 06/08/22 13:10 Actual Procedures p Left Total Shoulder Arthroplasty(Left) - Bean Garrido MD Ordered Studies 06/08/22 05:00 US - OR guided needle placemen Routine Hospital Course (1) Primary osteoarthritis, left shoulder: Patient:BRIDGETTE ELLER Admit Date:06/08/22 MR#:[id number] Att Phy:Bean Garrido M.D. Acct ID:[id number] Richelle Phy:Valerie Groves DO Date:1960 Fam Phy: Age:61 Location:3E Sex:F Room/Bed:Banner cc: ~ *NOTICE TO RECEIVING CONSTITUTION PARTY/AGENCY This information is strictly Confidential and protected under [place] law. [place] law prohibits you from making any further disclosure of this information unless further disclosure is expressly permitted by the written consent of the person to whom it pertains or is authorized by law. A general authorization for the release of medical or other information is not sufficient for this purpose. Hospital accepts no responsibility if the information is made available to any other person, INCLUDING THE PATIENT. Date of Service June 09, 2022 Assessment & Plan (1) Primary osteoarthritis, left shoulder: Plan: Postop day 1 status post left total shoulder arthroplasty PT/OT protocols. Nonweightbearing left upper extremity DVT prophylaxis-aspirin p.o. daily, SCDs. Pain management as written. I have also ordered a one-time dose of Toradol 30 mg IV to help with her pain control. DC planning-patient is planning for outpatient PT upon discharge. Admission and Anticipated Discharge Date Admission Date: June 08, 2022 Subjective Postop day 1 Patient sitting in her chair at the bedside. She is having concerns with her pain control. She is trying to time it accordingly and finds it somewhat difficult here at the hospital. She understands that she will be able to control her pain control better at home. She received 1 dose of hydromorphone at 1130 this morning. She states that has controlled her pain. She had 2 tablets of oxycodone at 830 and was questioning whether she should have had another dose of that at 1230. We discussed her pain medications and timing of those medications. Patient understands and is sure that she is able to control her pain at home. No other complaints at this time. She denies any shortness of breath, chest pain, lightheadedness. Physical Exam Physical Exam: Dressings are clean, dry, and intact. Sling is in place. Fingers have good mobility but she continues to have residual numbness in the first through third fingers which is basically tingling sensation per the patient. Results & Data ([facility]) Vital Signs (Past 12 Hours) Vital Signs Temp Pulse Resp BP Pulse Ox O2 Del Method 06/09/22 11:20 36.6 C 57 L 16 144/81 H 97 Room Air 06/09/22 07:04 36.6 C 67 16 113/61 94 Room Air 06/09/22 02:38 36.4 C L 67 16 131/75 93 Room Air Laboratory Results Laboratory Results WBC 11.73 K/ul (4.8-10.8) H 10/14/22 05:41 RBC 3.77 M/uL (3.93-5.22) L 06/09/22 05:41 Hgb 12.8 g/dl (12.0-16.0) 06/09/22 05:41 Hct 36.6 % (34.1-44.9) 06/09/22 05:41 MCV 97.1 fL (80.0-100.0) 06/09/22 05:41 MCH 34.0 pg (25.0-34.0) 06/09/22 05:41 MCHC 35.0 g/dL (32.0-36.0) 06/09/22 05:41 RDW Std Deviation 41.4 fL (36.4-46.3) 06/09/22 05:41 RDW Coeff of Osbaldo 11.7 % (11.5-14.5) 06/09/22 05:41 Plt Count 173 K/uL (130-400) 06/09/22 05:41 MPV 11.2 fL (9.4-12.3) 06/09/22 05:41 Immature Gran % (Auto) 0.5 % 06/09/22 05:41 Neut % (Auto) 85.2 % 06/09/22 05:41 Lymph % (Auto) 7.9 % 06/09/22 05:41 [place] % (Auto) 6.1 % 06/09/22 05:41 Eos % (Auto) 0.1 % 06/09/22 05:41 Baso % (Auto) 0.2 % 06/09/22 05:41 Neut # (Auto) 10.00 K/uL (1.4-6.5) H 06/09/22 05:41 Lymph # (Auto) 0.93 K/uL (1.2-3.4) L 06/09/22 05:41 [place] # (Auto) 0.71 K/uL (0.24-0.82) 06/09/22 05:41 Eos # (Auto) 0.01 K/uL (0-0.50) 06/09/22 05:41 Baso # (Auto) 0.02 K/uL (0-0.2) 06/09/22 05:41 Immature Gran # (Auto) 0.06 K/uL (0.00-0.02) H 06/09/22 05:41 Sodium 137 mmol/L (136-145) 06/09/22 05:41 Potassium 4.0 mmol/L (3.5-5.1) 06/09/22 05:41 Chloride 109 mmol/L (98-107) H 06/09/22 05:41 Carbon Dioxide 22 mmol/L (21-32) 06/09/22 05:41 Anion Gap 6 (3-11) 06/09/22 05:41 BUN 11 mg/dl (6-23) 06/09/22 05:41 Creatinine 0.66 mg/dl (0.6-1.2) 06/09/22 05:41 Est Cr Clr Drug Dosing 88.4 ml/min 06/09/22 05:41 Est GFR ( Amer) 110.5 ml/min 06/09/22 05:41 Est GFR (Non-Af Amer) 95.3 ml/min 06/09/22 05:41 BUN/Creatinine Ratio 16.7 (10-20) 06/09/22 05:41 Glucose 133 mg/dl (70-99(Fasting)) H 06/09/22 05:41 POC Glucose 92 mg/dl (70-99) 06/08/22 12:16 Estimat Average Glucose 114 mg/dl 06/09/22 05:41 Hemoglobin A1c 5.6 % (4.5-5.6) 06/09/22 05:41 Calcium 8.4 mg/dl (8.5-10.1) L 06/09/22 05:41 Triglycerides 111 mg/dl (0-150) 06/09/22 05:41 Cholesterol 223 mg/dl (0-200) H 06/09/22 05:41 LDL Cholesterol, Calc 147 mg/dl 06/09/22 05:41 VLDL Cholesterol, Calc 22 mg/dl (0-30) 06/09/22 05:41 HDL Cholesterol 54 mg/dl 06/09/22 05:41 Cholesterol/HDL Ratio 4.1 (0-5) 06/09/22 05:41 TSH 1.304 uIu/ml (0.300-4.500) 06/09/22 05:41 SARS-CoV-2, RNA, NAAT NEGATIVE (NEGATIVE) 06/08/22 12:26 Impressions Shoulder X-Ray 06/08/22 16:52 XR shoulder LT min 2V routine CLINICAL HISTORY: Post shoulder surgery TECHNIQUE: 3 views of the left shoulder were obtained. Comparison: None available at the time of this dictation. FINDINGS: Patient is status post shoulder arthroplasty with expected postsurgical changes including soft tissue swelling and subcutaneous emphysema. No periarticular lucency or hardware fracture is seen. IMPRESSION: Expected postoperative appearance status post placement of shoulder arthroplasty. ACT 112: Negative or not required by law. Electronically signed by: Burton Bell M.D. 06/08/2022 5:16 PM Total Time Total Time Spent Total Time Spent (In Minutes): 5 Discharge Plan Discharge Items Patient Disposition: Home - Self-Care Reason For Visit: Osteoarthritis of the Left Glenohumeral Joint Discharge Diagnosis: Left shoulder osteoarthritis Activity: Per Instructions section Weightbearing: Left non-weightbearing Non-emergency contact: Surgeon Call non-emergency contact if: you have any medication questions, your pain is not controlled, your temperature is above 101.5, your wound has increased redness and your wound has increased drainage Follow-up/Referrals: Bean Garrido MD [Surgeon] - (follow up with Dr. Garrido in 2 weeks from the day of your surgery for your first post operative visit) Valerie Groves, [Primary Care Provider] - Diet: Regular Addtl Attending Provider Instructions: ACTIVITY RECOMMENDATIONS: SELF CARE INSTRUCTIONS AFTER TOTAL SHOULDER ARTHROPLASTY A. You may do daily exercises as taught in physical therapy while in hospital. No lifting with the operative arm. Please schedule your outpatient physical therapy appointment to begin within 2-3 days after leaving the hospital. Specific restrictions will be written on your physical therapy prescription that is provided to you. B. You are to wear your sling/immobilizer at all times EXCEPT when performing your daily exercises, participating in physical therapy and for hygiene purposes. C. You may perform dry, daily dressing changes. Please keep your incision covered. You may shower 48 hours after surgery. Do not apply soap or any ointment/lotions directly over incision. Do not soak incision in bath tub/swimming pool. D. You may use ice as needed to operative shoulder. SPECIAL CARE INSTRUCTIONS: MEDICATION INSTRUCTIONS: *It is recommended you take Aspirin 325mg daily for four weeks post-op. VERY IMPORTANT TO READ AND REVIEW A. There are a few signs you need to watch for after you are home. Call [facility] at [phone] if you experience any of the followin. Increased severe shoulder pain. Some pain is expected especially when you exercise. 2. Increased swelling in you shoulder or arm; pain or swelling in either upper extremity. 3. Any fluid drainage from the incision. 4. Shortness of breath or chest pain. B. Please call [facility] at [phone] if you have any questions or concerns about your operation or recovery. C. Call your physician if: 1. Temperature is greater than 101 degrees (F). 2. Pain is not relieved by prescribed pain medications. 3. Increase drainage or redness from incision. 4. Unanswered questions or concerns. FOLLOW UP VISIT: Please call [facility] at [phone] to schedule a follow up appointment with Dr. Garrido or his PA in 12-14 days from your surgery date. Stand-Alone Forms: [facility], Opioid Pain Management, Smoking Cessation Medications and DC Order Prescriptions: New aspirin 81 mg Tablet,Delayed Release (Dr/Ec) 81 mg PO QAM 30 Days Qty: 30 0RF acetaminophen [Tylenol Extra Strength] 500 mg Tablet 1,000 mg PO Q8 14 Days Qty: 84 0RF oxycodone 5 mg tablet 5 - 10 mg PO Q4H PRN (Reason: pain) Qty: 30 0RF Continued magnesium gluconate 500 mg Tablet 500 mg PO TID Discharge Orders: Discharge Order (Routine); Ordered 06/09/22 Ordered By: Gerardo Armando/Other Patient Handouts: DVT Post Op Prevention, Shoulder Replacement Surg Recovery Admission Data Admit Date/Time: 06/08/22 16:52 Attending Provider: Bean Garrido Admit Provider: Bean Garrido Primary Care Provider: Valerie Groves Other Providers: Krystin Covarrubias ; Shay Soni Other Interventions: Discharge Summary Assessment (RN) Last Done: 06/09/22 14:45
== END 2022-06-09 16:35 | disposition home or self-care (01) | DRG 483 ==
LOC: ASU 11:35 → INTOOBSV 16:52 → 3E 16:52